=== PATIENT | female | born 1995 | race Caucasian/White ===

== ENCOUNTER 2016-10-19 15:30 | Inpatient (IN) | payer OTHER ==
[~2016-10-19] VITALS: Ht 160 cm; Wt 53.5 kg
[2016-10-19] MEDS ORDERED: LR 1000ml 1,000 ML IV STA (16:11)
[2016-10-19 16:25] VITALS: BP 92/65
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
[2016-10-19] MEDS: levETIRAcetam 1,000mg/NS100ml 100 ML IVPB ONE ×2 (17:30→18:18)
[2016-10-19] MEDS ORDERED: LORazepam Inj 2mg/ml 1ml IV ONE (17:30)
[2016-10-19 18:00] LABS: BASOPHILS % (AUTO) 1.4 % (0.0-2.0); MEAN CORPUSCULAR HEMOGLOBIN 32.8 PG (27.0-31.0); MEAN CORPUSCULAR HGB CONC 36.7 G/DL (32.0-36.0); MEAN CORPUSCULAR VOLUME 89 FL (80-99); MEAN PLATELET VOLUME 6.5 FL (6.5-10.1); MONOCYTES % (AUTO) 6.4 % (1.0-10.0); NEUTROPHILS % (AUTO) 54.2 % (45.0-75.0); PLATELET COUNT 302 K/UL (150-450); RED BLOOD COUNT 4.19 M/UL (4.20-5.40); RED CELL DISTRIBUTION WIDTH 11.6 % (11.6-14.8); WHITE BLOOD COUNT 9.7 K/UL (4.8-10.8)
[2016-10-19 18:11] LABS: ACETAMINOPHEN < 10 ug/mL (10-30); ALANINE AMINOTRANSFERASE 7 U/L (3-33); ALBUMIN/GLOBULIN RATIO 1.7 (1.0-2.7); ALCOHOL < 10 mg/dL; ANION GAP 16 (5-15); ASPARTATE AMINO TRANSFERASE 13 U/L (5-40); CALCIUM 9.5 mg/dL (8.6-10.2); CARBON DIOXIDE 23 mEQ/L (20-30); CHLORIDE 105 mEQ/L (98-107); CREATININE 0.8 mg/dL (0.5-0.9); GLOMERULAR FILTRATION RATE > 60 mL/min (>60); HEMOLYSIS 8; POTASSIUM 3.7 mEQ/L (3.4-4.9); SODIUM 144 mEQ/L (135-145); TOTAL PROTEIN 7.3 g/dL (6.6-8.7); VALPROIC ACID < 3 ug/mL (50-100)
[2016-10-19 19:12] VITALS: BP 102/67
[2016-10-19] MEDS ORDERED: NKM (20:24)
[2016-10-19 20:45] VITALS: BP 110/68
[2016-10-19] MEDS ORDERED: Mylanta II UD 30ml ORAL PRN (20:45)
[2016-10-19] MEDS ORDERED: Zolpidem 5mg tab ORAL PRN (20:45)
[2016-10-19] MEDS ORDERED: Morphine Sulfate 2mg/ml Inj IVP PRN (20:45)
[2016-10-19] MEDS ORDERED: LORazepam Inj 2mg/ml 1ml IV PRN (20:45)
[2016-10-19] MEDS ORDERED: Miralax 17gm pkt ORAL PRN (20:45)
[2016-10-19 21:00] VITALS: BP 104/64
[2016-10-19] MEDS ORDERED: Heparin 5000 units/ml inj SUBQ SCH (21:30)
--- NOTE | 2016-10-20 13:18 | Discharge Summary ---
Discharge Summary Hospital Course Date of Admission Oct 19, 2016 at 18:40 Date of Discharge Oct 19, 2016 at 22:00 Admitting Diagnosis seizures HPI Jennifer Muñoz is a 21 year old female who was admitted on Oct 19, 2016 at 18:40 for Seizures Hospital Course dc summary #[id number] Discharge Condition Upon Discharge: stable Discharge Disposition Patient signed AMA Discharge Diagnoses: Jamarcus (Racqueljan),Maral MEJIA Oct 20, 2016 13:18
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
--- NOTE | 2016-10-22 08:40 | Cardiology Report ---
APPROVED REPORT EKG Measurement Heart [id number] Sinus rhythm with sinus arrhythmia with occasional Abnormal ECG Electrical artifact.
== END 2016-10-19 22:00 | disposition left against medical advice (07) | DRG 101 ==
LOC: EDBD 15:30 → EMR 16:09 → EDBEDREQ 18:32 → 2E 18:40
DX: G40.909 Epilepsy, unspecified, not intractable, without status epilepticus (principal); F12.90 Cannabis use, unspecified, uncomplicated; V89.2XXS Person injured in unspecified motor-vehicle accident, traffic, sequela; Z88.1 Allergy status to other antibiotic agents
CPT/HCPCS: 36415; 80053; 80164; 80184; 80185; 80329; 82550; 85025; 93005